=== PATIENT | male | born 1960 | race Caucasian/White ===

== ENCOUNTER 2025-02-07 14:49 | Outpatient (AMB) | payer OTHER, SELFPAY ==
--- NOTE | 2025-02-07 14:55 | MHC.OFFVIS ---
Intake Visit Reasons: 1YR Allergies No Known Allergies Allergy (Verified 02/07/25 14:55) Medication List - Last Reconciled 02/07/25 by Elis Rolon CNP carbamazepine 200 mg orally 0.5 tab in the morning and 1 tab in the evening; tadalafil 10 mg PO DAILY zolpidem 5 mg PO BEDTIME PRN HPI Comments Details: He was doing okay. He was taking carbamazepine, no medication side effects. No seizures or auras. He was still working. No falls. Sleep was okay. His last aura was in April of 2010 and his last major seizure was in October of 2006. [facility] Medical History (Updated 02/07/25 @ 14:59 by Elis Rolon CNP) Syncope Head trauma Seizure disorder Review of Systems Const Denies chills, Denies daytime sleepiness, Denies difficulty sleeping, Denies fatigue, Denies fever(s), Denies frequent falls, Denies headache(s), Denies increased appetite, Denies poor appetite, Denies snoring, Denies weakness, Denies weight gain and Denies weight loss Eyes Denies loss of vision ENT Denies vertigo, Denies dizziness, Denies headache(s) and Denies neck pain Card Denies chest pain at rest, Denies chest pain with activity, Denies syncope, Denies leg edema, Denies palpitations, Denies dyspnea and Denies dyspnea on exertion Resp Denies cough, Denies dyspnea, Denies dyspnea on exertion and Denies snoring GI Denies abdominal pain, Denies constipation, Denies heartburn, Denies diarrhea and Denies nausea Denies urinary frequency, Denies urinary incontinence and Denies urinary urgency Musc Denies abnormal gait, Denies back pain, Denies myalgias, Denies arthralgias, Denies neck pain, Denies numbness and Denies tingling Neuro Denies abnormal gait, Denies vertigo, Denies dizziness, Denies syncope, Denies frequent falls, Denies headache(s), Denies lack of coordination, Denies loss of vision, Denies memory loss, Denies numbness, Denies Other visual disturbances, Denies restless legs, Denies seizure-like activity, Denies tingling, Denies paresthesias, Denies tremor(s) and Denies weakness Psych Denies anxiety, Denies depression, Denies auditory hallucinations, Denies memory loss and Denies visual hallucinations Endo Denies fatigue and Denies palpitations Physical Exam Const Other: General Appearance:? normal, in no acute distress. Heart:? S1, S2 normal, no murmurs. Lungs:? clear anteriorly and posteriorly. Musculoskeletal:? normal. Extremities:? no edema. Psych:? alert, oriented, cognitive function intact, cooperative with exam. Neuro Other: Abnormal Neurological Findings:?none.? Mental Status: alert and oriented X 3. Normal attention, orientation, memory, and affect. Cranial Nerves: Pupils are equal, round, and reactive to light. External ocular muscles are intact. Visual hoang are full, no ptosis. Face is symmetrical, no facial weakness or droop. Facial sensations are normal. Tongue protrudes in midline. Palate elevates symmetrically. Shoulder shrugging is normal Motor Examination: Normal muscle tone, bulk and strength. No atrophy or fasciculations. No drift of the extended upper extremities. DTR 2+. Plantars are flexor. Sensory Exam: Normal light touch, temperature, pinprick, vibration, and joint-position sensations. Rhomberg sign is absent. Coordination: No ataxia. No titubation. Gait Exam: Within normal limits. Cerebellar Signs: [id number] is okay. Extrapyramidal System: No tremor, rigidity with normal facial expressions. No bradykinesia. No bradyphrenia. Normal arm swing and posture. No propulsion or retropulsion. Speech: Normal. Results Reviewed Results Reviewed: CBZ 01/2017: 4.9 CBZ 03/02/2019: 5.9 Assessment & Plan Assessment & Plan (1) Seizure disorder: Code(s): G40.909 - Epilepsy, unspecified, not intractable, without status epilepticus Category: Medical Plan: Continue carbamazepine 200mg 0.5 tab in the morning and 1 tab in the evening. Follow up in 1 year or sooner as needed. Medications: New carbamazepine 200 mg orally 0.5 tab in the morning and 1 tab in the evening; 90 days 135 tabs 3RF carbamazepine 200 mg orally 0.5 tab in the morning and 1 tab in the evening; 135 tabs 3RF 90 days Coding Level of Care Code Est Pt Level 3 (44773) Diagnoses Seizure disorder G40.909
--- OUTSIDE RECORDS SUMMARY | 2025-02-07 19:46 | XMS_ITS | Clinical Summary ---
Author Organization [facility] Address [address] [place] [address] Care Team Providers Care Vineyard Tender Name Role Phone Dylan Jaimes Primary Care Provider [phone] Allergies No known active allergies Medications carBAMazepine (TEGretol) 200 mg tablet Take 200 mg by mouth. Active pravastatin (PRAVACHOL) 40 mg tablet Take 40 mg by mouth. Active Active Problems Problem Noted Date Diagnosed Date Seizure disorder 09/13/2019 Acute pain of right shoulder 09/12/2019 Hearing loss 03/01/2019 Tinnitus 03/01/2019 TMJ (temporomandibular joint disorder) 0 Family History Medical History Relation Comments Hypertension Father Stroke Father Relation Status Comments Father Mother Alive Social History Tobacco Use Types Packs/Day Years Used Date Smoking Tobacco: Passive Smo ke Exposure - Never Smoker Smokeless Tobacco: Never Alcohol Use Standard Drinks/Week Comments Yes 0 (1 standard drink = 0.6 oz pur e alcohol) social AUDIT-C Answer Date Recorded Q1: How often do you have a drink containing alc ohol? 2-3 times a week 10/10/2019 Average Number of Drinks Not on file 020 Frequency of Binge Drinking Not on file 09/22 PHQ-2 Answer Date Recorded Depression Risk (PHQ2) Score 0 02/2021 Sex and Gender Information Value Date Recorded Sex Assigned at Not on file Legal Sex Male 8:32 AM [facility] Gender Identity Not on file Sexual Orientation Not on file Last Filed Vital Signs Vital Sign Reading Time Taken Comments Blood Pressure 134/82 10/23/2021 3:01 PM EDT Pulse 73 10/23/2021 2:39 PM EDT Temperature 36.4 C (97.5 F) 10/23/2021 2:39 PM EDT Respiratory Rate 16 09/07/2019 2:43 PM EDT Oxygen Saturation 96% 10/23/2021 2:39 PM EDT Inhaled Oxygen Concentration - - Weight 80.6 kg (177 lb 9.6 oz) 10/23/2021 2:39 P M EDT Height - - Body Mass Index - - Plan of Treatment Health Maintenance Due Date Last Done Comments CT Colonography 1961 Cologuard 1961 FOBT/FIT 1961 Hepatitis C Screening 1961 Sigmoidoscopy 1961 MMR Vaccines (1 of 1 - Standard series) 1962 PHQ-9 Depression Screen 1973 Complete Annual HRA 1979 REID-7 Anxiety Screen 1979 DTaP,Tdap,and Td Vaccines (1 - Tdap) 02/13/1980 Pneumococcal Vaccine: 50+ Years (1 of 1 - PCV) 2011 Zoster Vaccines (1 of 2) 2011 Annual Preventive Exam 10/07/2019 9, 09/28/2017 COVID-19 Vaccine (1 - 2023-2 5 season) 2024 Influenza Vaccine (#1) 2024 Colonoscopy 04/15/2027 04/15/2017, 04/15/2017 Colorectal Cancer Screening 04/15/2027 RSV Vaccine (SCDM) (1 - 1-do se 75+ series) 02/13/2036 Hepatitis B Vaccines Aged Out No long er eligible based on patient's age to complete this topic Insurance [employer] Care Teams Vineyard Tender Relationship Specialty Start Date End Date Dylan Jaimes [address] [place] [address] PCP - General 03/02/19
== END 2025-02-07 15:04 | disposition home or self-care (01) ==
LOC: HO.HSM 14:50
PROVIDERS: PCP Internal Medicine; Referring Provider Internal Medicine; Visit Provider Registered Nurse
DX: G40.909 Epilepsy, unspecified, not intractable, without status epilepticus (principal)
CPT/HCPCS: 99213